=== PATIENT | female | born 1995 ===

== ENCOUNTER 2024-11-12 15:06 | Emergency (ER) | payer MEDICAID, SELFPAY ==
--- NOTE | ~2024-11-12 | US_ITS ---
CLINICAL HISTORY: torsion US pelvis transabdominal and transvaginal with Doppler Comparison: None provided Findings: Transabdominal scanning performed for overall anatomy. Transvaginal scanning performed for additional detail. Anteverted uterus is 6.4 cm length. Normal myometrium. Endometrium 5 mm thickness. A small ( less than 2 mm ) cystic structure within the endometrium Right ovary 3.3 x 2.8 x 2.5 cm. Left ovary 2.5 x 1.3 x 1.8 cm. Normal color Doppler with arterial/venous spectral tracing of both ovaries. No free fluid. IMPRESSION: 1. A small (< 2 mm) cystic structure within the endometrium, otherwise unremarkable. Short-term follow-up with serial beta HCG is recommended. 2. No evidence of ovarian torsion. This document has been electronically signed by: Donaldo Salcedo MD on 11/12/2024 22:04:22
--- NOTE | ~2024-11-12 | XR_ITS ---
CLINICAL HISTORY: pain --- Additional Notes or Special Instructions: constipation?? 1 view abdomen Comparison: None provided Findings: No pneumoperitoneum or pneumatosis. No abnormal calcifications. No acute fractures. IMPRESSION: Normal bowel gas pattern This document has been electronically signed by: Donaldo Salcedo MD on 11/12/2024 19:25:35
[2024-11-12 15:37] VITALS: BP 112/77; PULSE 73; RESP 16; TEMP 36.1; O2SAT 100; BMI 22.5
--- NOTE | 2024-11-12 15:42 | ED_ITS ---
HPI - General Adult General Chief complaint: General Medical Stated complaint: vaginal pain Time Seen by Provider: 11/12/24 18:14 Source: patient Limitations: language barrier History of Present Illness ED Provider: Mignon Sam PA-C HPI narrative: 28-year-old female with a history of ovarian cysts presents with left pelvic pain for 2-3 days. Pain is increased in severity and radiating to left low back. Unable to describe the nature of her discomfort. Patient states she feels as if ?something is falling out of her vagina?. Denies dysuria, hematuria or history of kidney stones. Denies abdominal pain, back pain, nausea vomiting. Denies vaginal discharge, risk for STD, no vaginal bleeding. Related Data Previous Rx's ?Medication ?Instructions ?Recorded ketorolac 10 mg tablet 10 mg PO Q6H PRN pain #20 ta bs 11/12/24 Allergies Allergy/AdvReac Type Severity Reaction Status Date / Time latex Allergy Unknown Verified 11/12/24 15:45 Review of Systems 2 Review of Systems: Yes all other systems are reviewed and are negative Constitutional: Constitutional: Denies fatigue and Denies fever(s) Cardiovascular: Cardiovascular: Denies chest pain and Denies dyspnea Respiratory: Respiratory: Denies dyspnea Gastrointestinal: Gastrointestinal: Denies abdominal pain, Denies constipation, Denies diarrhea, Denies nausea and Denies vomiting Genitourinary: Genitourinary: Denies dysuria, Reports pelvic pain and Denies vaginal discharge Endocrine: Endocrine: Denies fatigue PMFSH Past Medical History Attestation statement: The following information was validated with the patient. Physical Exam ED Vital Signs: Vital Signs - 24 hr 11/12/24 15:37 11/12/24 18:04 11/12/24 19:06 Temperature 96.9 F 98.2 F 98.6 F Pulse Rate 73 74 78 Respiratory Rate 16 14 16 Blood Pressure 112/77 125/83 111/88 Pulse Oximetry 100 100 100 Oxygen Delivery Method Room Air Room Air Room Air 11/12/24 21:21 Temperature 98.7 F Pulse Rate 63 Respiratory Rate 16 Blood Pressure 113/80 Pulse Oximetry 100 Oxygen Delivery Method Room Air BMI result Body Mass Index 22.5 Const Other: Alert Orientation/consciousness: patient oriented x3 Resp Effort & Inspection: normal respiratory effort Cardio Other: Normal peripheral perfusion GI Other: Abdomen is soft, nontender nondistended no guarding, Other: Focal tenderness over left pelvic region, no guarding, discomfort is mild to moderate. Deferred pelvic exam Skin Other: Warm dry no rash Neuro General: patient oriented x3, gait normal, no focal motor deficits and CN's II- XI intact bilaterally Psych Other: Cooperative Course Course Course Narrative: This is a rapid medical exam performed by Maikel Garrido NP: Additional HPI, ROS, PE not included below will be deferred to primary provider. Patient is a 28-year-old Micronesian speaking female presenting to the ED with complaint of pelvic/vaginal pain since Wednesday. States pain is severe, also complaining of vaginal pain, 01/17. Denies vaginal bleeding or discharge, urinary symptoms. Pain now radiating to back. States when she coughs it feels like something is going to fall out. LMP was 10/19-10/21. Plan: UA, labs Medications Administered Discontinued Medications Generic Name Dose Route Start Last Admin Trade Name Freq PRN Reason Stop Dose Admin Ketorolac Tromethamine 15 mg 11/12/24 18:32 11/12/24 19:05 Ketorolac Tromethamine 15 Mg/Ml Vial IM 11/12/24 18:33 15 mg ONCE ONE Administration Medical Decision Making Medical Decision Making [facility] Narrative: 28-year-old female with a history of ovarian cysts presents with left pelvic pain for 2-3 days. Pain is increased in severity and radiating to left low back. Unable to describe the nature of her discomfort. Patient states she feels as if ?something is falling out of her vagina?. Denies dysuria, hematuria or history of kidney stones. Denies abdominal pain, back pain, nausea vomiting. Denies vaginal discharge, risk for STD, no vaginal bleeding. Patient states she had a recent pelvic exam, was screened for STDs everything was negative. Problem: Ovarian cyst History: Per patient I have considered the following differential diagnoses: Ovarian cyst with rupture, torsion, uterine prolapse, endometriosis, TOA, STD, cervicitis, UTI, pyelonephritis, renal stones Plan: Patient here with a odd presentation. She feels as if ?something is falling out of her vagina?. She just had a pelvic exam which was normal per her report, I am not inclined to repeat it. I will obtain a transvaginal ultrasound. My indication is to rule out torsion, she does have a history of cysts. We will be giving Toradol. She has no related symptoms, she has no abdominal pain or back pain to suggest pyelonephritis or renal colic. She is also very well-appearing, she is not presenting as 1 who does going through renal colic. I have independently reviewed the following tests: Labs: No leukocytosis, not anemic, no electrolyte abnormality noted, urine not infected, not Findings: Transabdominal scanning performed for overall anatomy. Transvaginal scanning performed for additional detail. Anteverted uterus is 6.4 cm length. Normal myometrium. Endometrium 5 mm thickness. A small ( less than 2 mm ) cystic structure within the endometrium Right ovary 3.3 x 2.8 x 2.5 cm. Left ovary 2.5 x 1.3 x 1.8 cm. Normal color Doppler with arterial/venous spectral tracing of both ovaries. No free fluid. IMPRESSION: 1. A small (< 2 mm) cystic structure within the endometrium, otherwise unremarkable. Short-term follow-up with serial beta HCG is recommended. 2. No evidence of ovarian torsion. Lab Data 11/12/24 15:53 11/12/24 15:53 Labs: Lab Results 11/12/24 11/12/24 Range/Units 15:53 18:32 WBC 10.6 (4.8-10.8) X10*3/uL RBC 4.85 (4.20-5.50) X10*6/uL Hgb 13.2 (12.0-16.0) g/dl Hct 39.8 (37.0-47.0) % MCV 82.1 (80.0-98.0) fL MCH 27.2 (27.0-33.0) pg MCHC 33.2 (31.0-35.0) g/dl RDW 13.8 (11.0-16.0) % Plt Count 194 (160-400) X10*3/uL MPV 10.7 (9.4-12.3) fL Immature Gran % (Auto) 0.3 (0.0-0.4) % Neut % (Auto) 62.0 (45-73) % Lymph % (Auto) 27.5 (20-40) % [place]y % (Auto) 7.2 (2-11) % Eos % (Auto) 2.4 (0-4) % Baso % (Auto) 0.6 (0-2) % Lymph # (Auto) 2.9 (1.2-4.9) X10*3/uL [place]y # (Auto) 0.8 (0.1-1.2) X10*3/uL Eos # (Auto) 0.3 (0.0-0.4) X10*3/uL Baso # (Auto) 0.1 (0.0-0.2) X10*3/uL Abs Immat Gran (auto) 0.03 (0.00-0.03) X10*3/uL Absolute Neuts (auto) 6.6 (2.0-8.3) x10*3/uL Absolute Nucleated RBC 0.000 (0.0-0.012) X10*3/uL Nucleated RBC % (auto) 0.0 (0.0-0.2) /100WBC Sodium 139 (135-145) mmol/L Potassium 3.8 (3.3-5.1) mmol/L Chloride 107 (96-108) mmol/L Carbon Dioxide 23 (22-29) mmol/L Anion Gap 13 (12-20) BUN 6 L (9-16) mg/dL Creatinine 0.73 (0.5-1.4) mg/dL Estim Creat Clear Calc 105.1 Estimated GFR > 60 Random Glucose 89 (60-115) mg/dL Calcium 8.8 (8.4-10.2) mg/dL Total Bilirubin 0.4 (0.0-1.0) mg/dL AST 27 (5-31) U/L ALT 6 (0-31) U/L Alkaline Phosphatase 114 (39-117) U/L Total Protein 7.4 (6.5-8.0) g/dL Albumin 4.3 (3.5-5.0) g/dL Beta HCG, Quant < 2 mIU/mL Urine Color Yellow Urine Appearance Clear Urine pH 6.5 (5.0-9.0) Ur Specific [place] <= 1.005 (1.005-1.025) Urine Protein Negative (Neg-Trace) mg/dL Urine Glucose (UA) Negative (Negative) mg/dL Urine Ketones Negative (Negative) mg/dL Urine Blood Negative (Negative) Urine Nitrite Negative (Negative) Ur Leukocyte Esterase Negative (Negative) Discharge Plan Discharge Clinical Impression: Lesion of endometrium Patient Disposition: Home, Self-Care Additional Instructions: You were found to have a less than 2 mm cystic structure within the endometrium. You need to call your income tax consultant for a follow up appointment, call tomorrow. The remainder of your screening labs were completely normal. Your urine is not infected. You are not . The x-ray of the abdomen was normal as well. Prescriptions: New ketorolac 10 mg tablet 10 mg PO Q6H PRN (Reason: pain) Qty: 20 0RF Rx Instructions: maximum total duration of 5 days from all oral, intranasal, or parenteral formulations. The patient had an intramuscular dose of Toradol here in the emergency room. Interventions: ED Discharge Assessment Last Done: 11/12/24 23:26 Discharge Date/Time: 11/12/24 23:27 Print Language: Georgian
[2024-11-12 15:57] LABS: MANUAL DIFF FLAG NO
[2024-11-12 16:02] LABS: Hematocrit 39.8 % (37.0-47.0); Hemoglobin 13.2 g/dl (12.0-16.0); Imm Gran Abs Auto 0.03 X10*3/uL (0.00-0.03); Imm Gran Pct Auto 0.3 % (0.0-0.4); Lymphocytes Absolute Auto 2.9 X10*3/uL (1.2-4.9); Mean Corpuscular HGB Conc 33.2 g/dl (31.0-35.0); Mean Corpuscular Hemoglobin 27.2 pg (27.0-33.0); Mean Corpuscular Volume 82.1 fL (80.0-98.0); NRBC Abs Auto 0.000 X10*3/uL (0.0-0.012); NRBC Pct Auto 0.0 /100WBC (0.0-0.2); Platelet Count 194 X10*3/uL (160-400); Red Blood Count 4.85 X10*6/uL (4.20-5.50); White Blood Count 10.6 X10*3/uL (4.8-10.8)
[2024-11-12 16:18] LABS: Alanine Aminotransferase 6 U/L (0-31); Albumin Level 4.3 g/dL (3.5-5.0); Alkaline Phosphatase 114 U/L (39-117); Anion Gap 13 (12-20); Aspartate Amino Transferase 27 U/L (5-31); Blood Urea Nitrogen 6 mg/dL (9-16); Calcium 8.8 mg/dL (8.4-10.2); Carbon Dioxide 23 mmol/L (22-29); Chloride 107 mmol/L (96-108); Creatinine Clr Calc Pharmacy 105.1; Estimated Glomerular Filt Rate > 60; Potassium 3.8 mmol/L (3.3-5.1); Sodium 139 mmol/L (135-145); Total Protein 7.4 g/dL (6.5-8.0)
[2024-11-12 18:04] VITALS: BP 125/83; PULSE 74; RESP 14; TEMP 36.8; O2SAT 100
[2024-11-12 18:38] LABS: Appearance Urine Clear; Glucose Urine UA Negative (Negative); PH 6.5 (5.0-9.0); Specific Gravity - Urine <= 1.005 (1.005-1.025)
[2024-11-12 19:06] VITALS: BP 111/88; PULSE 78; RESP 16; TEMP 37; O2SAT 100
--- NOTE | 2024-11-12 19:16 | PC.NURSE ---
assumed care of pt. Pt medicated per JUL for 01/17 pain.
[2024-11-12 21:21] VITALS: BP 113/80; PULSE 63; RESP 16; TEMP 37.1; O2SAT 100
[2024-11-12 23:26] VITALS: BP 113/76; PULSE 81; RESP 17; TEMP 36.7; O2SAT 98
== END 2024-11-12 23:27 | disposition home or self-care (01) ==
PROVIDERS: Registered Nurse Emergency; Emergency Provider Emergency Medicine
DX: N85.9 Noninflammatory disorder of uterus, unspecified (principal); R10.2 Pelvic and perineal pain; M54.50 Low back pain, unspecified; Z79.899 Other long term (current) drug therapy
CPT/HCPCS: 36415; 74018; 76830; 76856; 80053; 81003; 84702; 85025; 93975; 96372; 99284; J1885

== ENCOUNTER → 2024-11-12 18:32 | Outpatient (BNV) | payer MEDICAID, SELFPAY | PROVIDERS: Emergency Provider Emergency Medicine; Visit Provider Student in an Organized Health Care Education/Training Program | DX: R10.9 Unspecified abdominal pain (principal) | CPT/HCPCS: 74018 ==